=== PATIENT | male | born 1945 | race Caucasian/White ===

== ENCOUNTER 2020-12-23 02:01 | Emergency (ER) | payer MEDICARE, OTHER, SELFPAY ==
[2020-12-23 02:06] VITALS: BP 180/96; PULSE 80; RESP 14; TEMP 36.4; O2SAT 96
--- NOTE | 2020-12-23 02:18 | ED.MALEGU ---
HPI - Male Genitourinary General Chief complaint: Urogenital-Male Stated complaint: unable to urinate over 12 hours Time Seen by Provider: 12/23/20 02:18 History of Present Illness HPI Narrative: 75 yo male w/ h/o BPH and UTI presents to the ED for urinary retention. He has not been able to urinate since about noon yesterday. He has a strong sensation that he needs to, but he is not able to. He also has lower abdominal pain. No dysuria, fever, chills, hematuria. He has had a past obstruction, that was due to bleeding and he has not seen any blood this time. Related Data Home Medications Medication Instructions Recorded Confirmed albuterol sulfate INHALATION 12/23/20 12/23/20 amlodipine-benazepril 1 cap PO DAILY 12/23/20 atorvastatin 40 mg PO DAILY 12/23/20 tamsulosin 0.4 mg PO DAILY 12/23/20 terazosin 5 mg PO HS 12/23/20 tiotropium bromide 2 puff INHALATION DAILY 12/23/20 Allergies Allergy/AdvReac Type Severity Reaction Status Date / Time No Known Allergies Allergy Verified 12/23/20 02:59 Review of Systems Review of Systems: All systems reviewed & are unremarkable except as noted in HPI and below Constitutional: Constitutional: Denies fever(s) and Denies weakness Cardiovascular: Cardiovascular: Denies chest pain Respiratory: Respiratory: Denies dyspnea Gastrointestinal: Gastrointestinal: Reports abdominal pain, Denies constipation, Denies diarrhea, Denies nausea and Denies vomiting Genitourinary: Genitourinary: Denies hematuria, Reports oliguria and Denies dysuria Neurologic: Reports system reviewed and no additional complaints, except as documented PMFSH Past Medical History Medical History (Updated 12/23/20 @ 05:17 by Dusty Núñez MD) BPH (benign prostatic hyperplasia) COPD (chronic obstructive pulmonary disease) HTN (hypertension) Social History Social History (Updated 12/23/20 @ 05:17 by Dusty Núñez MD) Gender identity (if verbalized by the patient): Male Sexual Orientation (if Verbalized by the Patient): Straight or Heterosexual Exam Const: General: no acute distress, alert and ill appearing chronically Nutritional Appearance: well nourished HENMT: Head: normal to inspection Resp: Effort & Inspection: tachypneic Auscultation: wheezes Cardio: Rate: regular rate Rhythm: regular rhythm GI: GI Palp: Yes Soft to palpation and Yes Tenderness to palpation present (GI) (suprapubic) : Male General Exam: Yes normal external exam Skin: General skin exam: normal color Neuro: General: patient oriented x3, moves all extremities and no focal motor deficits Speech: normal speech Extrem: General: normal to inspection Course Vital Signs Vital signs: Vital Signs Temperature 36.4 C L 12/23/20 02:06 Pulse Rate 80 12/23/20 02:06 Respiratory Rate 14 12/23/20 02:06 Blood Pressure 180/96 H 12/23/20 02:06 Pulse Oximetry 96 12/23/20 02:06 Temperature 36.4 C L 12/23/20 02:06 Pulse Rate 79 12/23/20 04:37 Respiratory Rate 19 12/23/20 04:37 Blood Pressure 128/78 12/23/20 04:37 Pulse Oximetry 96 12/23/20 04:37 MDM - Male Genitourinary MDM Narrative Medical decision making narrative: initially he was able to urinate and reported feeling better. ladder scan did not show a large residual. I was planning for discharge, but he then began having dysuria and more pain. catheter was placed. I will also start antibiotics for possible UTI. UA was equivocal, but he is now having dysuria and pain with very mild retention. Differential Diagnosis Differential diagnosis: Likely urinary tract infection and acute retention of urine Medical Records Attestation: I reviewed the patient's medical records. Lab Data Attestation: I reviewed the patient's lab results. Labs: Lab Results 12/23/20 Range/Units 03:45 Urine Color Yellow (Yellow) Urine Appearance Clear (Clear) Urine pH 6.0 (5.0-9.0) Ur Specific [place] 1.019 (1.001-1.035)
--- NOTE | 2020-12-23 03:00 | PC.NURSE ---
RN attempted catheter 2x unsuccessful. ERP notified. Pt. urinating post catheter without catheter being placed. post urination bladder scan there were 60 ml left in pt. bladder
[2020-12-23 03:49] VITALS: BP 114/68; PULSE 91; RESP 20; O2SAT 97
[2020-12-23 03:58] LABS: Add Urine Microscopic? YES; Appearance Urine Clear (Clear); Bilirubin Urine Negative (Negative); Blood Urine 2+ (Negative); Color Urine Yellow (Yellow); Glucose Urine UA Negative (Negative); Ketones Urine Negative (Negative); Leukocyte Esterase Ur Negative LEU/UL (Negative); Mucus Urine Rare /lpf; Nitrate Urine Negative (Negative); Protein Urine 2+ mg/dL (Negative); RBC Urine >75 /hpf (0-2); Specific Grav Ur 1.019 (1.001-1.035); Urobilinogen Urine Negative mg/dL (<2.0)
[2020-12-23 04:37] VITALS: BP 128/78; PULSE 79; RESP 19; O2SAT 96
== END 2020-12-23 04:17 | disposition home or self-care (01) ==
PROVIDERS: Emergency Provider Emergency Medicine
DX: N39.0 Urinary tract infection, site not specified (principal); N40.1 Benign prostatic hyperplasia with lower urinary tract symptoms; R33.8 Other retention of urine; I10 Essential (primary) hypertension; J44.9 Chronic obstructive pulmonary disease, unspecified
CPT/HCPCS: 51701; 81001; 87086; 99283

== ENCOUNTER 2021-10-14 19:17 | Emergency (ER) | payer MEDICARE, OTHER, SELFPAY ==
[2021-10-14 19:19] VITALS: BP 167/80; PULSE 72; RESP 18; TEMP 36.3; O2SAT 93
[2021-10-14 21:57] VITALS: BP 134/66; PULSE 100; O2SAT 100
--- NOTE | 2021-10-14 22:21 | PC.NURSE ---
after bladder scan done pt was able to urinate and states I feel a lot better bladder scan done and 192ml left in bladder. Pt states I feel better now I am going to go home .
== END 2021-10-15 02:28 | disposition left against medical advice (07) ==
DX: Z53.21 Procedure and treatment not carried out due to patient leaving prior to being seen by health care provider (principal)
CPT/HCPCS: 99199